=== PATIENT | female | born 1945 | race Caucasian/White ===

== ENCOUNTER 2019-06-07 08:11 | Outpatient (REF) | payer MEDICARE, BC, SELFPAY ==
[2019-06-07 11:55] LABS: HCT 40.9 % (36.0-46.0); HGB 13.5 g/dL (12.0-15.5); Mean Corpuscular Hemoglobin 31.2 pg (27.0-33.0); Mean Corpuscular Volume 94.5 fL (80-95); Mean Platelet Volume 9.2 fL (8.0-11.0); Platelet Count 410 x1000/uL (130-400); RBC 4.33 m/cumm (4.00-5.20); RBC Distribution Width 13.5 % (11.7-14.6)
[2019-06-07 12:21] LABS: ALT 24 U/L (14-59); AST 25 U/L (15-37); Albumin 3.7 g/dL (3.4-5.0); Alkaline Phosphatase 106 U/L (46-116); Anion Gap 6.4 mmol/L (3-11); BUN 15 mg/dL (7-18); Bilirubin, Total 0.7 mg/dL (0.2-1.0); CO2 29.6 mmol/L (21.0-32.0); CREATININE 0.79 mg/dL (0.55-1.02); Chloride 107 mmol/L (98-107); Glucose 91 mg/dL (70-100); Potassium 4.6 mmol/L (3.5-5.1); Sodium 143 mmol/L (136-145); TSH 1.74 uIU/mL (0.36-3.74); Total Protein 6.5 g/dL (6.4-8.2)
== END 2019-06-07 08:31 ==
LOC: NCHCN 08:11
PROVIDERS: PCP Family Medicine; Visit Provider Family Medicine
DX: E78.5 Hyperlipidemia, unspecified (principal); Z79.899 Other long term (current) drug therapy
CPT/HCPCS: 80053; 85027; 84443

== ENCOUNTER 2020-03-07 15:00 | Outpatient (REF) | payer MEDICARE, BC, SELFPAY | END 2020-03-07 15:20 | LOC: NCHCN 15:00 | PROVIDERS: PCP Family Medicine; Visit Provider Family Medicine | DX: R30.0 Dysuria (principal) | CPT/HCPCS: 87086 ==

== ENCOUNTER 2020-07-25 14:37 | Outpatient (REF) | payer MEDICARE, BC, SELFPAY ==
--- NOTE | 2020-07-25 12:00 | SKI_PTH ---
PATIENT: Carly Max LOC: [facility] U#:[id number] AGE/SX: 74/F ROOM: RE07/25/[address]: Carmella Summers : 1945 BED: DIS: 07/25/2020 SPEC #: [id number] RECD: 07/28/20 12:21 STATUS: YAMILET RENilesh #: [id number] VICTORINO: 07/25/20 12:[address]: Carmella Summers DEPT: Surgical Specimen RECD BY: Chiquita Leger Tissues: 1 - SKIN BIOPSY(SHAVE/PUNCH) Procedures: SKIN LEVEL 4 Comments: [id number]
== END 2020-07-25 14:57 ==
LOC: NCHCN 14:37
PROVIDERS: PCP Family Medicine; Visit Provider Family Medicine
DX: L82.1 Other seborrheic keratosis (principal)
CPT/HCPCS: 88305

== ENCOUNTER 2020-11-07 08:48 | Outpatient (REF) | payer MEDICARE, BC, SELFPAY ==
[2020-11-07 15:38] LABS: ALT 43 U/L (14-59); AST 36 U/L (15-37); Albumin 3.8 g/dL (3.4-5.0); Alkaline Phosphatase 122 U/L (46-116); Anion Gap 7.7 mmol/L (3-11); BUN 15 mg/dL (7-18); Bilirubin, Total 0.4 mg/dL (0.2-1.0); CO2 28.3 mmol/L (21.0-32.0); CREATININE 0.9 mg/dL (0.55-1.02); Calcium 9.4 mg/dL (8.5-10.1); Calculated LDL 78 mg/dL (<100); Chloride 107 mmol/L (98-107); Cholesterol 159 mg/dL (<200); Glucose 97 mg/dL (74-106); HDL Cholesterol 56 mg/dL (40-60); Potassium 5.3 mmol/L (3.5-5.1); Sodium 143 mmol/L (136-145); Total Protein 6.6 g/dL (6.4-8.2); Triglyceride 126 mg/dL (<150)
[2020-11-10 05:26] LABS: Vitamin D 25 Total 22.4 ng/ml (30-100)
== END 2020-11-07 08:49 | disposition home or self-care (01) ==
LOC: NCHCN 08:48
PROVIDERS: PCP Family Medicine; Visit Provider Family Medicine
DX: E55.9 Vitamin D deficiency, unspecified (principal); E78.5 Hyperlipidemia, unspecified
CPT/HCPCS: 80053; 80061; 82306

== ENCOUNTER 2022-06-07 08:43 | Outpatient (REF) | payer MEDICARE, BC, SELFPAY ==
[2022-06-07 16:36] LABS: ALT 44 U/L (14-59); AST 37 U/L (15-37); Albumin 3.8 g/dL (3.4-5.0); Alkaline Phosphatase 95 U/L (46-116); Anion Gap 9.2 mmol/L (3-11); BUN 16 mg/dL (7-18); Bilirubin, Total 0.4 mg/dL (0.2-1.0); CO2 26.8 mmol/L (21.0-32.0); CREATININE 0.8 mg/dL (0.55-1.02); Calcium 9.3 mg/dL (8.5-10.1); Calculated LDL 86 mg/dL (<100); Chloride 108 mmol/L (98-107); Cholesterol 174 mg/dL (<200); Estimated GFR 76.79 (mL/min/1.73m2); Glucose 91 mg/dL (74-106); HDL Cholesterol 66 mg/dL (40-60); Potassium 4.5 mmol/L (3.5-5.1); Sodium 144 mmol/L (136-145); Total Protein 6.5 g/dL (6.4-8.2); Triglyceride 111 mg/dL (<150)
[2022-06-07 17:37] LABS: Vitamin D 25 Total 23.4 ng/mL (30-100)
== END 2022-06-07 08:44 | disposition home or self-care (01) ==
LOC: NCHCN 08:43
PROVIDERS: PCP Family Medicine; Visit Provider Internal Medicine
DX: E78.5 Hyperlipidemia, unspecified (principal); E55.9 Vitamin D deficiency, unspecified
CPT/HCPCS: 80053; 80061; 82306

== ENCOUNTER 2022-12-06 11:10 | Outpatient (REF) | payer MEDICARE, BC, SELFPAY ==
[2022-12-06 16:23] LABS: Vitamin B12 260 pg/mL (193-986)
== END 2022-12-06 11:11 | disposition home or self-care (01) ==
LOC: NCHCN 11:10
PROVIDERS: PCP Family Medicine; Visit Provider Internal Medicine
DX: E55.9 Vitamin D deficiency, unspecified (principal); R27.9 Unspecified lack of coordination
CPT/HCPCS: 82306; 82607

== ENCOUNTER 2023-11-01 10:45 | Outpatient (REF) | payer MEDICARE, BC, SELFPAY ==
[2023-11-01 14:27] LABS: HCT 37.6 % (36.0-46.0); HGB 12.3 g/dL (11.2-15.7); MCH 31.4 pg (27.0-33.0); MCHC 32.7 % (32.0-36.0); MCV 96 fL (80-95); MPV 9.3 fL (8.0-11.0); Platelet Count 379 10^3/uL (130-400); RBC 3.92 10^6/uL (3.93-5.22); RDW 13.2 % (11.7-14.6); RDW-SD 46.8 fL; WBC 4.79 10^3/uL (4.4-10.8)
[2023-11-01 15:18] LABS: ALT 31 U/L (14-59); AST 31 U/L (15-37); Albumin 3.7 g/dL (3.4-5.0); Alkaline Phosphatase 102 U/L (46-116); Anion Gap 6.1 mmol/L (3-11); BUN 21 mg/dL (7-18); Bilirubin, Total 0.5 mg/dL (0.2-1.0); CO2 29.9 mmol/L (21.0-32.0); CREATININE 0.9 mg/dL (0.55-1.02); Calcium 9.1 mg/dL (8.5-10.1); Calculated LDL 87 mg/dL (<100); Chloride 107 mmol/L (98-107); Cholesterol 173 mg/dL (<200); Estimated GFR 66.26 (mL/min/1.73m2); Glucose 99 mg/dL (74-106); HDL Cholesterol 76 mg/dL (40-60); Potassium 4.1 mmol/L (3.5-5.1); Sodium 143 mmol/L (136-145); Total Protein 6.5 g/dL (6.4-8.2); Triglyceride 54 mg/dL (<150); Vitamin B12 422 pg/mL (193-986)
[2023-11-01 15:19] LABS: Vitamin D 25 Total 26.3 ng/mL (30-100)
== END 2023-11-01 10:46 | disposition home or self-care (01) ==
LOC: NCHCN 10:45
PROVIDERS: PCP Family Medicine; Referring Provider Internal Medicine; Visit Provider Internal Medicine
DX: E78.5 Hyperlipidemia, unspecified (principal); E55.9 Vitamin D deficiency, unspecified; E53.8 Deficiency of other specified B group vitamins; I34.1 Nonrheumatic mitral (valve) prolapse
CPT/HCPCS: 80053; 80061; 82306; 85027; 82607

== ENCOUNTER 2024-05-01 18:21 | Outpatient (REF) | payer MEDICARE, BC, SELFPAY | END 2024-05-01 18:22 | disposition home or self-care (01) | LOC: LBN 18:21 | PROVIDERS: PCP Family Medicine; Visit Provider Nurse Practitioner Family | DX: N30.00 Acute cystitis without hematuria (principal) | CPT/HCPCS: 87086 ==

== ENCOUNTER 2024-11-14 15:15 | Outpatient (REF) | payer MEDICARE, BC, SELFPAY ==
[2024-11-14 16:21] LABS: ALT 27 U/L (14-59); AST 21 U/L (15-37); Albumin 3.9 g/dL (3.4-5.0); Alkaline Phosphatase 97 U/L (46-116); Bilirubin, Direct 0.1 mg/dL (0.0-0.2); Bilirubin, Total 0.5 mg/dL (0.2-1.0); Total Protein 6.5 g/dL (6.4-8.2)
== END 2024-11-14 15:16 | disposition home or self-care (01) ==
LOC: NCHCN 15:15
PROVIDERS: PCP Family Medicine; Visit Provider Internal Medicine
DX: Z51.81 Encounter for therapeutic drug level monitoring (principal)
CPT/HCPCS: 80076

== ENCOUNTER 2025-01-21 15:56 | Outpatient (REF) | payer MEDICARE, BC, SELFPAY ==
[2025-01-21 14:49] LABS: HCT 39.5 % (36.0-46.0); HGB 12.7 g/dL (11.2-15.7); MCH 31.9 pg (27.0-33.0); MCHC 32.2 % (32.0-36.0); MCV 99 fL (80-95); MPV 9.3 fL (8.0-11.0); Platelet Count 349 10^3/uL (130-400); RBC 3.98 10^6/uL (3.93-5.22); RDW 12.6 % (11.7-14.6); RDW-SD 46.3 fL; WBC 3.73 10^3/uL (4.4-10.8)
[2025-01-21 15:30] LABS: ALT 27 U/L (14-59); AST 28 U/L (15-37); Albumin 3.7 g/dL (3.4-5.0); Alkaline Phosphatase 88 U/L (46-116); BUN 16 mg/dL (7-18); Bilirubin, Total 0.4 mg/dL (0.2-1.0); CREATININE 0.8 mg/dL (0.55-1.02); Calcium 8.7 mg/dL (8.5-10.1); Calculated LDL 76 mg/dL (<100); Chloride 109 mmol/L (98-107); Cholesterol 164 mg/dL (<200); Estimated GFR 75.37 (mL/min/1.73m2); Glucose 103 mg/dL (74-106); HDL Cholesterol 77 mg/dL (>or=50); Potassium 4.3 mmol/L (3.5-5.1); Sodium 144 mmol/L (136-145); Total Protein 6.5 g/dL (6.4-8.2); Triglyceride 55 mg/dL (<150)
== END 2025-01-21 15:57 | disposition home or self-care (01) ==
LOC: NCHCN 15:56
PROVIDERS: PCP Family Medicine; Visit Provider Internal Medicine
DX: E78.5 Hyperlipidemia, unspecified (principal); Z51.81 Encounter for therapeutic drug level monitoring
CPT/HCPCS: 80053; 80061; 85027

== ENCOUNTER 2025-07-30 15:13 | Outpatient (REF) | payer MEDICARE, BC, SELFPAY ==
[2025-07-30 20:44] LABS: HCT 37.7 % (36.0-46.0); HGB 12.5 g/dL (11.2-15.7); MCH 32.1 pg (27.0-33.0); MCHC 33.2 % (32.0-36.0); MCV 97 fL (80-95); MPV 10.1 fL (8.0-11.0); Platelet Count 268 10^3/uL (130-400); RBC 3.89 10^6/uL (3.93-5.22); RDW 12.8 % (11.7-14.6); RDW-SD 45.4 fL; WBC 4.70 10^3/uL (4.4-10.8)
[2025-07-30 22:15] LABS: Vitamin B12 > 2000 pg/mL (211-911)
== END 2025-07-30 15:14 | disposition home or self-care (01) ==
LOC: NCHCN 15:13
PROVIDERS: PCP Family Medicine; Visit Provider Internal Medicine
DX: E53.8 Deficiency of other specified B group vitamins (principal); Z51.81 Encounter for therapeutic drug level monitoring
CPT/HCPCS: 85027; 82607